=== PATIENT | female | born 1995 | race Caucasian/White ===

== ENCOUNTER → 2017-01-24 | Outpatient (REF) | payer OTHER | LOC: M LAB REF 16:10 | PROVIDERS: ATTEND Physician Assistant | DX: N39.0 Urinary tract infection, site not specified (principal) ==

== ENCOUNTER → 2017-05-11 | Outpatient (REF) | payer OTHER | LOC: M LAB REF 20:37 | PROVIDERS: ATTEND Physician Assistant Medical | DX: N30.01 Acute cystitis with hematuria (principal) ==

== ENCOUNTER → 2018-11-09 | Outpatient (REF) | payer OTHER | LOC: M LAB REF 12:29 | PROVIDERS: ATTEND Physician Assistant Medical | DX: M54.5 Low back pain (principal) ==

== ENCOUNTER → 2019-05-05 | Outpatient (REF) | payer OTHER ==
[2019-05-05 13:46] LABS: BASO % 0.5 % (0.0-1.0); EOS # 0.1 10^3/uL (0.0-0.50); EOS % 0.8 % (0.0-3.0); HEMATOCRIT 43.2 % (36.0-47.0); HEMOGLOBIN 15.1 g/dl (12.0-15.5); LYMPH # 2.3 10^3/uL (1.5-6.5); LYMPH % 28.9 % (24.0-44.0); MEAN CORPUSCULAR HEMOGLOBIN 31.6 pg (27.0-33.0); MEAN CORPUSCULAR VOLUME 90.4 fl (80.0-96.0); MONO # 0.8 10^3/uL (0.0-0.8); MONO % 10.1 % (0.0-5.0); NEUTROPHILS # 4.6 10^3/uL (1.8-7.7); NEUTROPHILS % 59.3 % (36.0-66.0); PLATELET COUNT, AUTOMATED 256 10^3/uL (150-450); RED BLOOD COUNT 4.78 10^6/uL (4.00-5.40); WHITE BLOOD COUNT 7.8 10^3/uL (4.0-10.0)
[2019-05-05 14:30] LABS: ALBUMIN 3.7 GM/DL (3.2-5.2); ALT/SGPT 57 U/L (12-78); BILIRUBIN,TOTAL 0.3 MG/DL (0.2-1.0); BLOOD UREA NITROGEN 13 MG/DL (7-18); CALCIUM LEVEL 8.6 MG/DL (8.5-10.1); CARBON DIOXIDE LEVEL 23 MEQ/L (21-32); CHLORIDE LEVEL 110 MEQ/L (98-107); CREATININE FOR GFR 0.86 MG/DL (0.55-1.30); FOLATE 16.1 NG/ML (>5.4); GLOMERULAR FILTRATION RATE > 60.0 (>60); GLUCOSE, FASTING 80 MG/DL (70-100); POTASSIUM SERUM 4.3 MEQ/L (3.5-5.1); SODIUM LEVEL 141 MEQ/L (136-145); TOTAL PROTEIN 7.4 GM/DL (6.4-8.2); VITAMIN B12 LEVEL 752 PG/ML (247-911)
== END ==
LOC: M SFHCPLAZ 10:57
PROVIDERS: ATTEND Nurse Practitioner Family
DX: R41.3 Other amnesia (principal)

== ENCOUNTER → 2019-05-26 | Outpatient (CLI) | payer OTHER ==
--- NOTE | 2019-05-29 20:30 | SLEEPHOME ---
DATE OF PROCEDURE: 05/26/2019 ORDERED BY: CARRIE Tam Diagnostic home sleep testing was performed due to concern for the obstructive sleep apnea syndrome. For testing a nocturnal T3 respiratory monitoring device was used. Continuous record was made of pulse, oxygen saturation, airflow, chest, abdominal strain and body position. 10 hours and 59 minutes of data were reviewed. There were 8 hours and 16 minutes marked as time in bed. During the interval marked time in bed, there were only 7 respiratory events identified of 10 seconds in duration or greater for a respiratory event index of 0.8. Baseline pulse rate 71 beats per minute, pulse rate ranged 51-111. Baseline saturation 97%. Lowest oxygen saturation 92%. Testing was performed in both the supine and nonsupine positions. IMPRESSION: Normal diagnostic home sleep test with few respiratory events and snoring.
== END ==
LOC: M SLEEP HO 10:02
PROVIDERS: ATTEND Nurse Practitioner Family
DX: R40.0 Somnolence (principal); R06.83 Snoring

== ENCOUNTER → 2019-06-08 | Outpatient (CLI) | payer OTHER ==
[~2019-06-08] MED LIST: PROHANCE 279.3MG/ML 15ML VIAL (A9576) As Ordered ONE; PROHANCE 279.3MG/ML 5ML VIAL (A9576) As Ordered ONE
--- NOTE | 2019-06-08 16:26 | REP ---
MRI brain without contrast: History: Blurred vision and dizziness. Comparison study: Comparison head CT study March 23, 2016. Technique: Axial and sagittal imaging planes are utilized for T1 and T2-weighted scans. Sequences include spin-echo, fast spin echo, FLAIR, and diffusion weighted sequences. MRI findings: No bony calvarial lesion is seen. Craniocervical junction and upper cervical cord are normal in appearance. There is no MR evidence of significant paranasal sinus disease. No intraorbital abnormality is seen. The lateral, third, and fourth ventricles are normal in size and position. Cha-white differentiation pattern is intact above and below the tentorium. There is no evidence of intracranial hemorrhage. No mass, infarction, extra-axial fluid collection or midline shift is seen. No abnormal white matter lesion is seen. Impression: Negative noncontrast brain MRI study. Electronically Signed by Segundo Zaragoza MD 06/08/2019 04:17 P
--- NOTE | 2019-06-08 17:55 | REP ---
MR angiography of the carotid arteries without and with intravenous gadolinium: History: Dizziness. Loss of memory. Blurred vision. MR gadolinium enhancement dose: 25 ml of intravenous Isovue 370 is administered. MR angiographic findings: Great vessel origins and the visualized aortic arch are unremarkable. The vertebral arteries are widely patent and symmetric. Basilar artery is unremarkable. The common carotid arteries are normal bilaterally. There is no evidence to suggest carotid bulb or proximal ICA plaquing stenosis or dissection. Internal carotid arteries are normal and symmetric. Intracranial arterial vasculature at the [place] appears normal as visualized. Impression: Normal carotid MRA angiography without and with intravenous contrast. Electronically Signed by Segundo Zaragoza MD 06/09/2019 07:45 A
== END ==
LOC: M RAD 15:03
PROVIDERS: ATTEND Physician Assistant Medical
DX: H53.8 Other visual disturbances (principal); R42 Dizziness and giddiness
CPT/HCPCS: 70549; 70551; A9576

== ENCOUNTER → 2020-02-25 | Outpatient (REF) | payer OTHER ==
[2020-02-25 16:16] LABS: APPEARANCE, URINE CLOUDY (CLEAR); BACTERIA, URINE AUTO 1+ (NEGATIVE); BILIRUBIN, URINE AUTO NEGATIVE (NEGATIVE); BLOOD, URINE BLOOD NEGATIVE (NEGATIVE); COLOR, URINE AMBER (YELLOW); GLUCOSE, URINE (UA) AUTO NEGATIVE (NEGATIVE); KETONE, URINE AUTO NEGATIVE (NEGATIVE); LEUKOCYTE ESTERASE, URINE AUTO 2+ (NEGATIVE); MUCUS, URINE SMALL (NEGATIVE); NITRITE, URINE AUTO POSITIVE (NEGATIVE); PROTEIN, URINE AUTO NEGATIVE (NEGATIVE); RBC, URINE AUTO 5 /HPF (0-3); RENAL EPITHELIAL CELLS 1 /HPF; SPECIFIC GRAVITY URINE AUTO 1.018 (1.002-1.035); SQUAMOUS EPITHELIAL CELL UR AU 10 /HPF (0-6); WBC, URINE AUTO TNTC /HPF (0-3)
== END ==
LOC: M SFHCPLAZ 15:55
PROVIDERS: ATTEND Physician Assistant Medical
DX: R30.0 Dysuria (principal)

== ENCOUNTER 2022-07-21 18:40 | Emergency (ER) | payer MEDICAID ==
[~2022-07-21] VITALS: Ht 157.5 cm; Wt 105.9 kg
[2022-07-21 20:15] LABS: BACTERIA, URINE MOD AMOUNT; HYALINE CAST, URINE NONE SEEN /lpf (0-1); SQUAMOUS EPITHELIAL CELL URINE LARGE AMOUNT /hpf (SMALL AMT)
[2022-07-21 20:17] LABS: BASO # 0.1 10^3/uL (0.0-0.2); BASO % 0.4 % (0.0-1.0); EOS # 0.1 10^3/uL (0.0-0.5); EOS % 1.2 % (0.0-3.0); HEMATOCRIT 41.8 % (36.0-47.0); HEMOGLOBIN 14.5 g/dl (12.0-15.5); LYMPH # 2.5 10^3/uL (1.5-5.0); LYMPH % 21.1 % (24.0-44.0); MEAN CORPUSCULAR HEMOGLOBIN 30.8 pg (27.0-33.0); MEAN CORPUSCULAR HGB CONC 34.7 g/dl (32.0-36.5); MEAN CORPUSCULAR VOLUME 88.7 fl (80.0-96.0); NEUTROPHILS # 8.2 10^3/uL (1.5-8.5); PLATELET COUNT, AUTOMATED 276 10^3/uL (150-450); RED BLOOD COUNT 4.71 10^6/uL (4.00-5.40); WHITE BLOOD COUNT 11.9 10^3/uL (4.0-10.0)
[2022-07-21 20:46] LABS: HCG, SERUM QUALITATIVE NEGATIVE (NEGATIVE)
[2022-07-21 20:51] LABS: BLOOD UREA NITROGEN 16 MG/DL (7-18); CALCIUM LEVEL 8.9 MG/DL (8.5-10.1); CARBON DIOXIDE LEVEL 25 MEQ/L (21-32); CHLORIDE LEVEL 108 MEQ/L (98-107); CREATININE FOR GFR 0.83 MG/DL (0.55-1.30); GLOMERULAR FILTRATION RATE > 60.0 (>60); GLUCOSE, FASTING 102 MG/DL (70-100); POTASSIUM SERUM 3.9 MEQ/L (3.5-5.1); SODIUM LEVEL 139 MEQ/L (136-145)
[2022-07-21 20:52] LABS: ALBUMIN 3.9 GM/DL (3.2-5.2); ALT/SGPT 45 U/L (12-78); BILIRUBIN,TOTAL 0.2 MG/DL (0.2-1.0); TOTAL PROTEIN 7.6 GM/DL (6.4-8.2)
[2022-07-21 23:20] VITALS: BP 142/95
== END 2022-07-21 23:23 | disposition home or self-care (01) ==
LOC: M ED 18:40
DX: N83.01 Follicular cyst of right ovary (principal); M43.17 Spondylolisthesis, lumbosacral region; Z88.8 Allergy status to other drugs, medicaments and biological substances

== ENCOUNTER → 2022-09-21 | Outpatient (CLI) | payer MEDICAID | LOC: M WHC 10:14 | PROVIDERS: ATTEND Physician Assistant Medical | DX: N83.201 Unspecified ovarian cyst, right side (principal) ==

== ENCOUNTER → 2022-11-28 | Outpatient (CLI) | payer MEDICAID | LOC: M WHC 11:20 | PROVIDERS: ATTEND Physician Assistant Medical | DX: N83.209 Unspecified ovarian cyst, unspecified side (principal) ==

== ENCOUNTER 2023-11-12 02:31 | Emergency (ER) | payer MEDICAID ==
[~2023-11-12] VITALS: Ht 157.5 cm; Wt 105.8 kg
[2023-11-12] MEDS ORDERED: CIPRODEX OTIC SUSP 7.5ML AD STA (06:42)
[2023-11-12] MEDS ORDERED: CIPR7.5D2 AD (06:46)
[2023-11-12 06:47] VITALS: BP 138/74; TEMP 98.8; O2SAT 98
== END 2023-11-12 06:54 | disposition home or self-care (01) ==
LOC: M ED 02:31
DX: H60.91 Unspecified otitis externa, right ear (principal); Z88.8 Allergy status to other drugs, medicaments and biological substances

== ENCOUNTER → 2023-12-31 | Outpatient (CLI) | payer MEDICAID ==
[~2023-12-31] MED LIST changes: +CIPR7.5D2 AD; -PROHANCE 279.3MG/ML 15ML VIAL (A9576) As Ordered ONE; -PROHANCE 279.3MG/ML 5ML VIAL (A9576) As Ordered ONE
== END ==
LOC: M LAB 16:20
PROVIDERS: ATTEND Orthopaedic Surgery
DX: M79.641 Pain in right hand (principal)

== ENCOUNTER → 2024-03-03 | Outpatient (REF) | payer MEDICAID | LOC: M SFHCPLAZ 11:04 | PROVIDERS: ATTEND Student in an Organized Health Care Education/Training Program | DX: Z76.89 Persons encountering health services in other specified circumstances (principal); R41.3 Other amnesia ==

== ENCOUNTER → 2024-03-03 | Outpatient (CLI) | payer MEDICAID ==
[2024-03-03 17:34] LABS: BASO % 0.4 % (0.0-1.0); EOS # 0.1 10^3/uL (0.0-0.5); EOS % 1.2 % (0.0-3.0); HEMATOCRIT 39.2 % (36.0-47.0); HEMOGLOBIN 13.6 g/dl (12.0-15.5); LYMPH # 1.8 10^3/uL (1.5-5.0); LYMPH % 15.5 % (24.0-44.0); MEAN CORPUSCULAR HEMOGLOBIN 29.8 pg (27.0-33.0); MEAN CORPUSCULAR HGB CONC 34.7 g/dl (32.0-36.5); MONO # 0.8 10^3/uL (0.0-0.8); MONO % 7.2 % (2.0-8.0); NEUTROPHILS # 8.5 10^3/uL (1.5-8.5); NEUTROPHILS % 75.3 % (36.0-66.0); PLATELET COUNT, AUTOMATED 299 10^3/uL (150-450); RED BLOOD COUNT 4.56 10^6/uL (4.00-5.40); WHITE BLOOD COUNT 11.3 10^3/uL (4.0-10.0)
[2024-03-03 17:43] LABS: ERYTHROCYTE SEDIMENTATION RATE 8 mm/hr (0-20)
[2024-03-03 18:07] LABS: C REACTIVE PROTEIN QUANTITATIV < 0.40 MG/DL (<1.0)
[2024-03-03 18:08] LABS: FREE T4 1.12 NG/DL (0.89-1.76); VITAMIN B12 LEVEL 544 PG/ML (211-911)
[2024-03-03 18:09] LABS: ALBUMIN 3.9 G/DL (3.2-5.2); ALKALINE PHOSPHATASE 69 U/L (46-116); ALT/SGPT 32 U/L (7.0-40); AST/SGOT 13 U/L (<34); BILIRUBIN,TOTAL 0.5 MG/DL (0.3-1.2); BLOOD UREA NITROGEN 15 MG/DL (9-23); CALCIUM LEVEL 8.4 MG/DL (8.5-10.1); CARBON DIOXIDE LEVEL 25 MMOL/L (20-31); CHLORIDE LEVEL 107 MMOL/L (98-107); CHOLESTEROL LEVEL 139 MG/DL (<200); CHOLESTEROL RISK RATIO 3.52 (<5); CREATININE FOR GFR 0.71 MG/DL (0.55-1.30); GLOMERULAR FILTRATION RATE > 60.0 (>60); GLUCOSE, FASTING 79 MG/DL (60-100); HDL CHOLESTEROL 39.4 MG/DL (>40); LDL CHOLESTEROL 72.6 MG/DL (<100); NON-HDL-C 99.6 MG/DL; POTASSIUM SERUM 3.7 MMOL/L (3.5-5.1); SODIUM LEVEL 139 MMOL/L (136-145); TOTAL PROTEIN 6.8 G/DL (5.7-8.2); TRIGLYCERIDES LEVEL 135 MG/DL (<150)
[2024-03-03 18:10] LABS: THYROID STIMULATING HORMONE 1.476 uIU/ML (0.55-4.78)
[2024-03-03 18:11] LABS: TOTAL 25(OH) VITAMIN D 33.4 NG/ML (20.0-100.0)
[2024-03-03 18:23] LABS: RHEUMATOID FACTOR QUANT < 3.5 IU/ML (<14)
== END ==
LOC: M LAB 16:28
PROVIDERS: ATTEND Student in an Organized Health Care Education/Training Program
DX: M25.50 Pain in unspecified joint (principal)

== ENCOUNTER → 2024-05-13 | Outpatient (REF) ==
[~2024-05-13] MED LIST changes: +DULO1CAP5 PO
== END ==
LOC: M PLAIMG 14:12
PROVIDERS: ATTEND Internal Medicine
DX: R52 Pain, unspecified (principal)

== ENCOUNTER 2024-05-18 07:55 | Day surgery (SDC) | payer OTHER ==
[~2024-05-18] VITALS: Ht 157.5 cm; Wt 105.1 kg
[2024-05-18] MEDS: LR 1,000 ML IV SCH (08:55)
[2024-05-18] MEDS ORDERED: ONDANSETRON 4MG 2ML VIAL As Ordered ONE (09:31)
[2024-05-18] MEDS ORDERED: LIDOCAINE 2% 100MG/5ML SDV (FOR ANES.) As Ordered ONE (09:31)
[2024-05-18] MEDS ORDERED: propofoL 200 MG/20 ML VIAL As Ordered ONE (09:31)
[2024-05-18] MEDS ORDERED: fentaNYL 100 MCG/2 ML INJECTION As Ordered ONE (09:32)
[2024-05-18] MEDS ORDERED: KETOROLAC 60MG 2ML VIAL As Ordered ONE (09:32)
[2024-05-18] MEDS ORDERED: MIDAZOLAM INJ 2MG/2ML VIAL As Ordered ONE (09:32)
[2024-05-18] MEDS: LIDOCAINE 1% MDV 20ML VIAL SC ONE (10:01)
[2024-05-18 11:15] VITALS: BP 136/84; TEMP 97.7; O2SAT 98
== END 2024-05-18 11:28 | disposition home or self-care (01) ==
LOC: M SDC 07:55
PROVIDERS: ATTEND Orthopaedic Surgery Hand Surgery
DX: G56.01 Carpal tunnel syndrome, right upper limb (principal); M25.532 Pain in left wrist; G47.30 Sleep apnea, unspecified; Z88.8 Allergy status to other drugs, medicaments and biological substances; Z88.3 Allergy status to other anti-infective agents; Z98.890 Other specified postprocedural states
CPT/HCPCS: 20526; 29848; 81025; J0665; J1100; J1885; J2250; J2405; J3010

== ENCOUNTER 2024-07-14 12:52 | Emergency (ER) | payer OTHER ==
[~2024-07-14] VITALS: Ht 157.5 cm; Wt 104.6 kg
[2024-07-14] MEDS: LIDOCAINE 5% (LIDODERM) PATCH TD ONE (13:48)
[2024-07-14] MEDS: methocarbamoL 500 MG TAB PO ONE (13:48)
[2024-07-14] MEDS: ACETAMINOPHEN 500 MG TAB PO ONE (13:48)
[2024-07-14] MEDS ORDERED: CYCL5TAB PO (14:45)
[2024-07-14] MEDS ORDERED: ACET325C5 PO (14:45)
[2024-07-14] MEDS ORDERED: MEDR4PAK PO (14:45)
[2024-07-14 14:47] VITALS: BP 136/83; TEMP 97.2; O2SAT 100
== END 2024-07-14 14:52 | disposition home or self-care (01) ==
LOC: M ED 12:52
DX: M54.50 Low back pain, unspecified (principal); Z88.8 Allergy status to other drugs, medicaments and biological substances; Z79.1 Long term (current) use of non-steroidal anti-inflammatories (NSAID); Z79.899 Other long term (current) drug therapy

== ENCOUNTER → 2024-11-04 | Outpatient (CLI) | payer OTHER ==
[~2024-11-04] MED LIST changes: +ACET325C5 PO; +CYCL5TAB4 PO; +MEDR4PAK PO
== END ==
LOC: M LAB 15:54 → M RAD 17:35
PROVIDERS: ATTEND Internal Medicine
DX: M54.9 Dorsalgia, unspecified (principal); M25.551 Pain in right hip; M25.552 Pain in left hip

== ENCOUNTER 2025-04-12 19:17 | Emergency (ER) | payer OTHER ==
[~2025-04-12] VITALS: Ht 157.5 cm; Wt 105.5 kg
[2025-04-13] MEDS ORDERED: KETO-204 PO (01:06)
[2025-04-13 01:11] VITALS: BP 131/65; TEMP 97.6; O2SAT 99
[2025-04-13] MEDS: KETOROLAC 60MG 2ML VIAL IM ONE (01:13)
[2025-04-13] MEDS: ACETAMINOPHEN 325 MG TAB PO ONE (01:14)
== END 2025-04-13 01:20 | disposition home or self-care (01) ==
LOC: M ED 19:17
DX: M54.50 Low back pain, unspecified (principal); M70.71 Other bursitis of hip, right hip; M70.72 Other bursitis of hip, left hip; Z88.5 Allergy status to narcotic agent; Z88.8 Allergy status to other drugs, medicaments and biological substances; Z79.1 Long term (current) use of non-steroidal anti-inflammatories (NSAID); Z79.2 Long term (current) use of antibiotics; Z79.899 Other long term (current) drug therapy
CPT/HCPCS: 96372; 99283; J1885

== ENCOUNTER → 2025-05-18 | Outpatient (CLI) | payer OTHER ==
[~2025-05-18] MED LIST changes: +KETO-204 PO
== END ==
LOC: M RAD 06:25
PROVIDERS: ATTEND Internal Medicine
DX: M25.551 Pain in right hip (principal)